=== PATIENT | male | born 1985 | race Caucasian/White ===

== ENCOUNTER 2024-08-26 09:30 | Emergency (ER) | payer OTHER ==
[~2024-08-26] VITALS: Ht 182.9 cm; Wt 86.2 kg
[2024-08-26 09:41] VITALS: BP 152/80; TEMP 97.9
[2024-08-26 10:00] VITALS: O2SAT 99
[2024-08-26] MEDS ORDERED: CLIN300C12 PO (11:16)
[2024-08-26] MEDS ORDERED: IBUPROFEN 400 MG TABLET ONE (11:19)
[2024-08-26] MEDS ORDERED: CLINDAMYCIN HCL 150 MG CAPSULE ONE (11:19)
[2024-08-26] MEDS: CLINDAMYCIN HCL 150 MG CAPSULE PO ONE (11:25)
[2024-08-26] MEDS: IBUPROFEN 400 MG TABLET PO ONE (11:25)
== END 2024-08-26 11:27 | disposition home or self-care (01) ==
LOC: ER 09:30
DX: J18.9 Pneumonia, unspecified organism (principal); J06.9 Acute upper respiratory infection, unspecified; R07.89 Other chest pain; Z88.0 Allergy status to penicillin
CPT/HCPCS: 36415; 71045-TC; 84484-TC